=== PATIENT | female | born 1965 | race Caucasian/White ===

== ENCOUNTER → 2019-01-29 09:19 | Outpatient (CLI) | payer OTHER, SELFPAY ==
[2019-01-29 11:01] LABS: Add Manual Diff / Slide Review NO; Basophils Absolute Auto 0 /uL (0-100); Basophils Percent Auto 1.1 % (0-2); Eosinophils Absolute Auto 200 /uL (0-450); Eosinophils Percent Auto 4.3 % (2-4); Hematocrit 43.5 % (36-46); Hemoglobin 14.4 g/dL (12.0-16.0); Lymphocytes Absolute Auto 1300 /uL (1100-4500); Lymphocytes Percent Auto 35.8 % (25-40); Mean Corpuscular HGB Conc 33.2 % (30-36); Mean Corpuscular Hemoglobin 31.2 PG (26-34); Mean Corpuscular Volume 93.8 fL (80-100); Monocytes Absolute Auto 300 /uL (0-900); Monocytes Percent Auto 8.3 % (3-14); Neutrophils Absolute Auto 1900 /uL (1500-7000); Neutrophils Percent Auto 50.5 % (50-75); Platelet Count 249 X10^3/uL (150-400); Red Blood Cell Count 4.63 X10^6/uL (4.0-5.2); Red Cell Distribution Width 13.2 % (11.6-14.8); White Blood Cell Count 3.7 X10^3/uL (4.5-11.0)
[2019-01-29 11:15] LABS: Alanine Aminotransferase 28 IU/L (9-52); Albumin 4.5 g/dL (3.5-5.0); Albumin Globulin Ratio 1.4 (1.0-2.8); Alkaline Phosphatase 63 U/L (38-126); Aspartate Aminotransferase 34 IU/L (14-36); BUN Creatinine Ratio 15.7 (6-22); Bilirubin Total 0.7 mg/dL (0.2-1.3); Blood Urea Nitrogen 11 mg/dL (7-17); Calcium 9.6 mg/dL (8.4-10.2); Carbon Dioxide 28 mmol/L (22-32); Chloride 100 mmol/L (98-107); Cholesterol 206 mg/dL (140-199); Estimated Glomerular Filt Rate > 60.0 mL/min (>60); Globulin 3.2 g/dL (1.7-4.1); Glucose 94 mg/dL (70-100); HDL Cholesterol 81 mg/dL (40-60); HEMOLYSIS < 15 (0-50); LDL Cholesterol Calculated 114 mg/dL (<100); Potassium 4.1 mmol/L (3.4-5.1); Sodium 139 mmol/L (137-145); Total Protein 7.7 g/dL (6.3-8.2); Triglycerides 56 mg/dL (35-150)
[2019-01-29 11:53] LABS: Thyroid Stimulating Hormone 0.37 uIU/mL (0.47-4.68)
== END ==
PROVIDERS: PCP Physician Assistant; Visit Provider Physician Assistant
DX: E03.9 Hypothyroidism, unspecified (principal); E78.5 Hyperlipidemia, unspecified
CPT/HCPCS: 36415; 80053; 80061; 84443; 85025

== ENCOUNTER → 2019-02-09 13:35 | Outpatient (CLI) | payer OTHER, SELFPAY ==
--- NOTE | 2019-02-09 | DI.ECHO.S_ITS ---
[facility]---------+ [facility] +---------+ : : [address] [place] : : : : [id number] : : : : Phone: [phone]+ Echocardiogram Report + + :Name: JOSE NELSON Study Date: 02/09/2019 Height: 68 in : :[facility] Weight: 125 lb : : Gender: Female BSA: 1.7 m2 : :: 1965 Age: 54 yrs BP: 108/60 mmHg: :Reason For Study: CARDIOMEGALY : : Performed By: Ashia Edwards : :Referring: JORDAN DOWD : + + Interpretation Summary Normal sinus rhythm. Normal LV size and wall thickness; normal wall motion and LV systolic function. EF is 50-55%. Stage I diastolic dysfunction. Normal chamber sizes. No significant valvular abnormalities. No prior study available for comparison. Procedure: A two-dimensional transthoracic echocardiogram with color flow and Doppler was performed. The study quality was technically adequate. There is no prior echocardiogram noted for this patient. The heart rate ranged between 64-71 bpm during the study. Left Ventricle: The left ventricle is normal in size, wall thickness, and systolic function without any focal wall motion abnormalities. The ejection fraction is estimated to be 50-55%. Right Ventricle: The right ventricle is normal size. Right ventricular systolic function is at the lower limits of normal. Atria: Both atria are normal in size. There is no Doppler evidence for an interatrial shunt. Mitral Valve: The mitral valve is normal in structure and function. There is trace mitral regurgitation. Aortic Valve: The aortic valve is normal in structure and function. Tricuspid Valve: The tricuspid valve is normal in structure and function. There is a trace or physiologic amount of tricuspid regurgitation. Pulmonary artery pressures cannot be estimated because of the lack of a measurable TR jet velocity. Pulmonic Valve: The pulmonic valve is not well visualized. Great Vessels: The aortic root is normal size. The ascending aorta could not be visualized. The aortic arch is normal in size. The pulmonary is not well visualized. The IVC is dilated (diameter is greater than 2.1 cm) yet it collapses greater than 50% with a sniff. This suggests a right atrial pressure of 8 mm Hg. Pericardium/ Pleura There is a trace pericardial effusion that is circumferential. There is no pleural effusion. MMode/2D Measurements & Calculations LVIDd: 4.3 cm LVOT diam: 2.3 cm LVIDs: 3.2 cm Ao root diam: 3.2 cm FS: 26.0 % Ao Arch Diam (distal): 2.2 cm IVSd: 0.61 cm LVPWd: 0.65 cm LV de. diameter/BSA (cm/m^2): 2.6 LV sys. diameter/BSA (cm/m^2): 1.9 LA A2 area: 16.3 cm2 RA long axis: 4.8 cm LA A4 area: 12.4 cm2 RA area: 16.4 cm2 LA length (vol): 3.8 cm RA vol: 47.6 ml LA vol: 44.6 ml RA : 28.4 ml/m2 LA vol index: 26.7 ml/m2 IVC diam: 2.6 cm RVD1 (basal): 3.2 cm TAPSE: 1.5 cm Doppler Measurements & Calculations Ao V2 max: 91.5 cm/sec LVOT Max Maldonado: 90.5 cm/sec Ao V2 mean: 70.4 cm/sec LV V1 max P.3 mmHg Ao max P.3 mmHg LV V1 VTI: 20.7 cm Ao mean P.1 mmHg KANIKA(I,D): 4.6 cm2 Ao V2 VTI: 18.8 cm KANIKA(V,D): 4.1 cm2 sev ratio: 1.1 KANIKA indexed to BSA (cm^2/m^2): 2.7 MV E max maldonado: 56.2 cm/sec SV(LVOT): 86.2 ml MV A max maldonado: 61.5 cm/sec MV E/A: 0.91 MV dec time: 0.32 sec Electronically signed by: Ya Mckenzie M.D. on Reading Physician:02/10/2019 03:49 AM
== END ==
PROVIDERS: PCP Physician Assistant; Visit Provider Physician Assistant
DX: I51.7 Cardiomegaly (principal)
CPT/HCPCS: 93306

== ENCOUNTER → 2019-05-07 11:23 | Outpatient (CLI) | payer OTHER, SELFPAY ==
[2019-05-07 13:01] LABS: Thyroid Stimulating Hormone 1.16 uIU/mL (0.47-4.68)
== END ==
PROVIDERS: PCP Physician Assistant; Visit Provider Physician Assistant
DX: E03.9 Hypothyroidism, unspecified (principal)
CPT/HCPCS: 36415; 84443

== ENCOUNTER → 2019-06-19 08:58 | Outpatient (CLI) | payer OTHER, SELFPAY ==
--- NOTE | 2019-06-19 | DI.US.S_ITS ---
PROCEDURE: US PELVIC COMPLETE INDICATIONS: PELVIC PAIN TECHNIQUE: Real-time scanning was performed of the pelvic organs, with image documentation. Additional endovaginal scanning was necessary due to incomplete visualization of the adnexal and endometrial structures by transabdominal scanning. COMPARISON: [facility], [place], PELVIC COMPLETE, 12/17/2014, 9:14. FINDINGS: Transabdominal scanning: Limited scanning through the kidneys shows no hydronephrosis. There is prominence of the right adrenal gland upon examination of the right kidney. A discrete mass was not seen. No pathologic free abdominal or pelvic fluid. Endovaginal scanning: Uterus: Uterus is anteverted and normal in size at 4.6 x 4.2 x 2.7 cm. myometrium is mildly heterogeneous without dominant mass The endometrium measures 2 mm in combined thickness. Ovaries: The right ovary is surgically absent. The left ovary was not seen. There is a thin-walled, bilobed, vaguely horseshoe shaped curvilinear cyst surrounding the urethra, likely in the upper vagina. This measures 3.2 x 2.3 x 1.8 cm. No internal solid component, vascularity, or debris. IMPRESSION: 1. Expected appearance of the uterus for postmenopausal female. 2. No suspicious adnexal masses. Nonvisualization of left ovary and surgically absent right ovary. 3. A simple bilobed (horseshoe shaped cyst in the upper vagina surrounding the urethra is suspicious for urethrocele, although the differential diagnosis includes Ly's duct cyst, less likely a cervical nabothian cyst. Clinical correlation may be useful. Dictated by: Lluvia Trejo M.D. on 06/19/2019 at 21:46 Approved by: Lluvia Trejo M.D. on 06/19/2019 at 21:56
== END ==
PROVIDERS: PCP Physician Assistant; Visit Provider Physician Assistant
DX: R10.2 Pelvic and perineal pain (principal); N89.8 Other specified noninflammatory disorders of vagina; Z90.721 Acquired absence of ovaries, unilateral
CPT/HCPCS: 76830; 76856

== ENCOUNTER → 2020-03-25 12:59 | Outpatient (CLI) | payer OTHER, SELFPAY ==
[2020-03-25 14:19] LABS: Appearance Urine UA CLEAR; Bilirubin Urine UA NEGATIVE (NEGATIVE); Color Urine UA YELLOW; Glucose Urine UA NEGATIVE (Negative); Ketones Urine UA NEGATIVE (NEGATIVE); Leukocyte Esterase Urine UA TRACE (NEGATIVE); Nitrite Urine UA NEGATIVE (Negative); Occult Blood Urine UA 3+ (Negative); Protein Urine UA NEGATIVE (Negative); Specific Gravity Urine UA <=1.005 (1.000-1.035); Urobilinogen Urine UA 0.2 E.U./dL (0.2)
[2020-03-25 14:21] LABS: pH Urine UA 5.5 (4.5-8.0)
[2020-03-25 14:48] LABS: Bacteria Urine Occasional (0-1); Culture Indicated Urine Specimen Cultured; RBC Urine 0-1/HPF (0-5/HPF); WBC Urine 1-5/HPF (0-5/HPF)
== END ==
PROVIDERS: PCP Physician Assistant; Referring Provider Urology; Visit Provider Urology
DX: N36.1 Urethral diverticulum (principal)
CPT/HCPCS: 81001; 87086

== ENCOUNTER → 2020-11-18 14:37 | Outpatient (ROUT) | payer OTHER, SELFPAY ==
[2020-11-18 15:19] LABS: Cholesterol 214 mg/dL (140-199); HDL Cholesterol 84 mg/dL (40-60); LDL Cholesterol Calculated 116 mg/dL (<100); Triglycerides 72 mg/dL (35-150)
[2020-11-18 15:50] LABS: TSH w/ Reflex to FT4 0.05 uIU/mL (0.47-4.68); Vitamin D 25 Hydroxy (D3) 56.1 ng/mL (30.0-100.0)
[2020-11-18 17:08] LABS: Free T4, Direct Thyroxine 1.45 ng/dL (0.78-2.19)
== END ==
PROVIDERS: PCP Physician Assistant; Visit Provider Physician Assistant
DX: E03.9 Hypothyroidism, unspecified (principal); E78.5 Hyperlipidemia, unspecified; E55.9 Vitamin D deficiency, unspecified
CPT/HCPCS: 80061; 82306; 84439; 84443

== ENCOUNTER → 2021-01-19 14:16 | Outpatient (ROUT) | payer OTHER, SELFPAY | PROVIDERS: PCP Physician Assistant; Visit Provider Physician Assistant | DX: R35.0 Frequency of micturition (principal) | CPT/HCPCS: 87077; 87086; 87186 ==